=== PATIENT | female | born 1960 | race Two or more races ===

== ENCOUNTER 2018-05-09 13:03 | Emergency (ER) | payer OTHER ==
[~2018-05-09] VITALS: Ht 160 cm; Wt 63.6 kg
[~2018-05-09 13:03] MED LIST: HYDR-3237 PO; MULT-516 PO
[2018-05-09 14:51] LABS: BASOPHILS # (AUTO) 0.03 x10^3/uL (0-0.1); BASOPHILS % (AUTO) 0 % (0-1); EOSINOPHILS # (AUTO) 0.13 x10^3/uL (0-0.4); EOSINOPHILS % (AUTO) 1 % (1-7); LYMPHOCYTES # (AUTO) 2.68 x10^3/uL (1-3.4); LYMPHOCYTES % (AUTO) 29 % (22-44); MD NO; MEAN CORPUSCULAR HEMOGLOBIN 32.2 pg (27.0-34.8); MEAN CORPUSCULAR HGB CONC 34.3 g/dL (32.4-35.8); MEAN CORPUSCULAR VOLUME 93.9 fL (80-100); MEAN PLATELET VOLUME 7.7 fL (7.4-10.4); MONOCYTES % (AUTO) 7 % (2-9); NEUTROPHILS # (AUTO) 5.75 x10^3/uL (1.8-6.8); NEUTROPHILS % (AUTO) 63 % (42-75); PLATELET COUNT 427 x10^3/uL (130-400); RED BLOOD COUNT 4.67 x10^6/uL (3.82-5.3); RED CELL DISTRIBUTION WIDTH 13.4 % (9.6-15.2)
[2018-05-09 15:06] LABS: ALBUMIN 4.1 g/dL (3.4-5.0); ANION GAP 8 mmol/L (5-15); CALCIUM 9.1 mg/dL (8.5-10.1); CHLORIDE 107 mmol/L (98-107)
[2018-05-09 15:12] LABS: ALANINE AMINOTRANSFERASE 31 U/L (12-78); ALKALINE PHOSPHATASE 96 U/L (45-117); BILIRUBIN,TOTAL 0.6 mg/dL (0.2-1.0); CREATININE 0.86 mg/dL (0.55-1.02); TOTAL PROTEIN 7.9 g/dL (6.4-8.2); TROPONIN I < 0.015 ng/mL (0.000-0.045)
[2018-05-09 15:22] VITALS: BP 96/47
== END 2018-05-09 15:38 | disposition home or self-care (01) ==
LOC: ED 15:15
DX: R07.89 Other chest pain (principal); M54.2 Cervicalgia
CPT/HCPCS: 36415; 71045; 80053; 83880; 84484; 85025; 93005; 99285

== ENCOUNTER → 2019-10-02 | Outpatient (CLI) | payer OTHER ==
[~2019-10-02] MED LIST changes: +GADOTERATE 7.5 MMOL/15 ML VIAL ONE
== END | disposition home or self-care (01) ==
LOC: RAD 16:28
PROVIDERS: ATTEND Family Medicine
DX: H91.92 Unspecified hearing loss, left ear (principal); H92.02 Otalgia, left ear; M54.2 Cervicalgia
CPT/HCPCS: 70543; 70553; A9575